=== PATIENT | male | born 1965 | race Two or more races ===

== ENCOUNTER → 2024-02-18 | Outpatient (CLI) | payer BC ==
[~2024-02-18] VITALS: Ht 180.3 cm; Wt 131.5 kg
[2024-02-18] MEDS: ADENOSINE 110 MG in GIVE UN-DILUTED 0 ML IV ONE (11:54)
== END | disposition home or self-care (01) ==
LOC: XYW 09:02
PROVIDERS: ATTEND Specialist
DX: I44.30 Unspecified atrioventricular block (principal); I10 Essential (primary) hypertension; R94.31 Abnormal electrocardiogram [ECG] [EKG]
CPT/HCPCS: 78452; 93017; A9500; J0153